=== PATIENT | male | born 2000 | race Caucasian/White ===

== ENCOUNTER 2023-03-30 18:32 | Emergency (ER) | payer BC, SELFPAY ==
--- NOTE | 2023-03-30 18:48 | ED.URI ---
HPI - URI/Sore Throat General Chief Complaint: Upper Respiratory Infection Stated Complaint: Sore Throat Time Seen by Provider: 03/30/23 18:48 Source: patient Mode of arrival: ambulatory Limitations: no limitations History of Present Illness HPI Narrative: Walter is a 23-year-old male patient presenting to the clinic today with complaints of sore throat x4 days. He denies any fever or chills. Did take at home COVID test and it was negative. Thinks is the sore throat may be related to allergy MD elicited complaint: cough, sore throat and nasal congestion Related Data Home Medications Medication Instructions Recorded Confirmed dextroamphetamine-amphetamine ER 30 mg PO DAILY 10/11/20 03/30/23 30 mg 24hr capsule,extend release (Adderall XR) diphenhydramine HCl 25 mg tablet 25 mg PO QHS 10/11/20 03/30/23 (Allergy (diphenhydramine)) Allergies Allergy/AdvReac Type Severity Reaction Status Date / Time No Known Allergies Allergy Verified 03/30/23 18:52 Review of Systems Review of Systems: Pertinent positives per HPI. Patient denies any fever, chills, rash, headache, visual changes, dizziness, cough, shortness of breath, chest pain, palpitations, nausea, vomiting, diarrhea, constipation, abdominal pain, or any urinary issues. [facility] Past Medical History Medical History BMI 31.0-31.9,adult Surgical History Surgical History S/P LASIK surgery Family History Family History Father Hypertension Mother Hypertension Depression Rheumatoid arthritis Sibling Depression Autism disorder Social History Social History Smoking status: Never smoker Second hand tobacco smoke exposure: No Alcohol intake: current Substance use: former Substance use type: does not use Living arrangements: dorm student housing Occupation/Education: student Additional occupation/education comments: [employer] Gender identity (if verbalized by the patient): Male Comments At the time of my signature, I reviewed and agree with the nursing past medical, surgical, social, and family history. There is no relevant family history pertinent to the patient complaint. Exam Narrative: General: Well-developed, well nourished, in no apparent distress Head: Normocephalic, atraumatic Eyes: Pupils equally round and reactive to light bilaterally, EOM intact, sclera and conjunctive clear, no discharge, lids normal Ears: TMs intact and clear, ear canals clear, no drainage, grossly hearing normal. Nose: Nares patent, clear discharge, no inflammation, no sinus tenderness. Mouth: Oral pharynx red without lesions or masses, good dentition, MMM. Postnasal drip Neck: Supple, trachea midline, no enlargement of anterior or posterior cervical nodes, no thyroid masses or goiter palpable. Cardio: Regular rate and rhythm, s1 and s2 normal, no murmur appreciated. Resp: Clear to auscultation bilaterally, no rhonchi, rales, wheezing or rubs Course Course Emergency Course: Portions of this record may have been created with voice recognition software. Level of Care: Express Care Visit Vital Signs Vital signs: Vital signs reviewed MDM - URI/Sore Throat MDM Narrative Medical decision making narrative: At the time of visit patient is resting comfortably on exam table. Strep screen was obtained and was negative in the clinic today. I suspect patient has viral pharyngitis. Supportive measures were discussed with the patient he voiced understanding discharge instructions agrees to treatment plan. Differential Diagnosis Differential diagnosis: Likely upper respiratory infection, otitis media, sinusitis, viral infection, bronchitis, influenza, pharyngitis and other (COVID) Discharge Plan
[2023-03-30 18:53] VITALS: BP 141/91; PULSE 88; RESP 16; TEMP 36.6; O2SAT 100
== END 2023-03-30 19:07 | disposition home or self-care (01) ==
PROVIDERS: Emergency Provider Nurse Practitioner Family
DX: J02.9 Acute pharyngitis, unspecified (principal)
CPT/HCPCS: 87081; 87880; 99213; G0463

== ENCOUNTER 2023-10-03 10:47 | Emergency (ER) | payer BC, SELFPAY ==
--- NOTE | ~2023-10-03 | CT_ITS ---
EXAMINATION: CT abdomen pelvis wo con DATE: 10/03/2023 14:11 INDICATION: Left lower quadrant abdominal pain. Hematuria. TECHNIQUE: Computed tomography (CT) of the abdomen and pelvis was performed without intravenous contr ast. Automated exposure control and iterative reconstruction technique were employed. The dose-length product was 1036.09 mGy-cm. COMPARISON: None. FINDINGS: The visualized portions of the lung bases are clear without pneumonia or pleural effusion. The heart size is normal. No pericardial effusion. The liver, gallbladder, spleen, pancreas, adrenal glands are normal. There are three 1-2 mm stones in right kidney. There is a 2 mm stone in left kidne y. There is mild left hydronephrosis and hydroureter. There is a 3 mm stone at left ureterovesicular junction. There are no dilated loops of bowel. The appendix is fluid-filled and measures 9 mm in diam eter. There are no pathologically enlarged lymph nodes. There is no free intraperitoneal fluid. There is mild lumbar spondylosis. IMPRESSION: 1. 3 mm stone at left ureterovesicular junction with mild left hydronephrosis and hydroureter. 2. Small bilateral nonobstructing kidney stones. 3. Fluid-filled appendix with diameter of 9 mm, which may be normal. Correlate with physical exam to exclude acute appendicitis. Reviewed, dictated and finalized at location A. IMPRESSION: 1. 3 mm stone at left ureterovesicular junction with mild left hydronephrosis a nd hydroureter. 2. Small bilateral nonobstructing kidney stones. 3. Fluid-filled appendix with diameter of 9 mm, which may be normal. Correlate with physical exam to exclude acute appendicitis.
[2023-10-03 11:06] VITALS: BP 177/110; PULSE 94; RESP 16; TEMP 36.7; O2SAT 100
[2023-10-03 13:10] LABS: Basophils Absolute Auto 0.1 K/mm3 (0.0-0.1); Basophils Percent Auto 0.5 % (0.2-1.2); Eosinophils Percent Auto 0.3 % (0-4.4); Hematocrit 48.8 % (42.0-52.0); Hemoglobin 15.8 g/dL (14.0-18.0); Immature Granulocyte Absolute 0.11 K/mm3 (0.00-0.031); Immature Granulocyte Percent A 0.9 % (0-0.5); Lymphocytes Absolute Auto 0.66 K/mm3 (0.9-3.2); Lymphocytes Percent Auto 5.3 % (18.3-44.2); Mean Corpuscular HGB Conc 32.4 g/dl (32-36); Mean Corpuscular Hemoglobin 30.7 pg (26-34); Mean Corpuscular Volume 94.9 fl (80-100); Mean Platelet Volume 9.9 fl (7.4-10.4); Monocytes Absolute Auto 0.7 K/mm3 (0.1-0.6); Monocytes Percent Auto 5.5 % (2.6-8.5); Neutrophils Absolute Auto 10.9 K/mm3 (1.3-6.7); Neutrophils Percent Auto 87.5 % (45.5-73.1); Platelet Count Result 273 k/mm3 (150-375); Red Blood Count 5.14 M/mm3 (4.6-6.20); Red Cell Distribution Width 13.7 % (11.5-14.5); White Blood Count 12.5 K/mm3 (4.5-10.0)
--- NOTE | 2023-10-03 13:19 | ED.ABDPAIN ---
HPI - Abdominal Pain General Chief Complaint: Abdominal Pain Stated Complaint: LLQ pain, chills Time Seen by Provider: 10/03/23 12:44 History of Present Illness HPI narrative: 23-year-old male present to the emergency department for evaluation of acute onset of left flank and left lower quadrant pain. Patient was at work when the symptoms started. Patient denies any prior abdominal surgical history denies any prior history of kidney stones. At time of evaluation patient states that pain has resolved. Related Data Home Medications Medication Instructions Recorded Confirmed dextroamphetamine-amphetamine ER 30 mg PO DAILY 10/11/20 03/30/23 30 mg 24hr capsule,extend release (Adderall XR) diphenhydramine HCl 25 mg tablet 25 mg PO QHS 10/11/20 03/30/23 (Allergy (diphenhydramine)) Allergies Allergy/AdvReac Type Severity Reaction Status Date / Time No Known Allergies Allergy Verified 10/03/23 13:18 Review of Systems Review of Systems: All systems reviewed & are unremarkable except as noted in HPI and below PMFSH Past Medical History Medical History BMI 31.0-31.9,adult Surgical History Surgical History S/P LASIK surgery Family History Family History Father Hypertension Mother Hypertension Depression Rheumatoid arthritis Sibling Depression Autism disorder Social History Social History Smoking status: Never smoker Second hand tobacco smoke exposure: No Alcohol intake: current Substance use: former Substance use type: does not use Living arrangements: dorm student housing Occupation/Education: student Additional occupation/education comments: [employer] Gender identity (if verbalized by the patient): Male Exam Narrative: APPEARANCE: Well appearing, no pain, no distress, well-nourished. HEAD: normocephalic, atraumatic. EYES: PERRLA/EOMI, conjunctivae clear. NOSE: Normal no drainage EARS:TMS clear with good light reflex. THROAT: Pharynx clear, no exudate. NECK: Supple. No adenopathy, no masses. RESPIRATORY: Airway patent, respirations nonlabored. Clear to auscultation bilaterally, no rales, rhonchi, wheezing. CARDIOVASCULAR: Regular rate and rhythm without murmurs rubs or gallops. ABDOMINAL: Soft, nontender, nondistended, normal bowel sounds MUSCULOSKELETAL: Moves all extremities. Strength/ROM intact, No edema, No calf tenderness. NEURO: Alert. Cranial nerves II through XII intact. Good gait. Good coordination SKIN: Warm, dry. Normal Color Course Course Emergency Course: Patient was pain-free at time of discharge and he was encouraged to have close follow-up with Urology. Vital Signs Vital signs: Vital Signs Temperature 98.1 F 10/03/23 11:06 Pulse Rate 94 10/03/23 11:06 Respiratory Rate 16 10/03/23 11:06 Blood Pressure 177/110 H 10/03/23 11:06 Pulse Oximetry 100 10/03/23 11:06 Temperature 98.1 F 10/03/23 11:06 Pulse Rate 94 10/03/23 11:06 Respiratory Rate 16 10/03/23 11:06 Blood Pressure 177/110 H 10/03/23 11:06 Pulse Oximetry 100 10/03/23 11:06 MDM - Abdominal Pain MDM Narrative Medical decision making narrative: 23-year-old male presenting emergency department for evaluation left lower quadrant pain. Patient is afebrile but does have a leukocytosis of 12.5 and hemoglobin of 15.8. UA did show evidence hematuria and patient's CMP had no acute abnormalities. CT scan did show a 3 mm stone at left ureterovesicular junction with mild left hydronephrosis and hydroureter. Patient denies any pain or complaint at this time. Patient was provided a Flomax, Zofran and [place] for pain control for home. Patient was encouraged to strain his urine have close follow-up with Urology. Patient w
[2023-10-03 13:24] LABS: Lactic Acid Reflex 0.8 mmol/L (0.7-2.0)
[2023-10-03 13:31] LABS: Alanine Aminotransferase 26 U/L (6-50); Albumin Level 4.6 g/dL (3.5-5.1); Alkaline Phosphatase 71 U/L (38-126); Anion Gap 8 mmol/L (4-12); Aspartate Amino Transferase 33 U/L (17-59); Bilirubin,Total 0.7 mg/dL (0.2-1.3); Blood Urea Nitrogen 16 mg/dL (9-20); Calcium 9.6 mg/dL (8.4-10.2); Carbon Dioxide 27 mmol/L (22-30); Chloride 102 mmol/L (98-107); Estimated CRCL calculation 143 ml/min; Estimated Glomerular Filt Rate > 60; Glucose 104 mg/dL (65-110); Potassium 3.6 mmol/L (3.4-5.0); Sodium 137 mmol/L (137-145)
[2023-10-03 13:32] LABS: Prothrombin Time 13.4 Seconds (11.1-14.7)
[2023-10-03 13:33] LABS: Partial Thromboplastin Time 30.9 Seconds (22.3-36.8)
[2023-10-03 13:35] LABS: Appearance Urine Clear (Clear); Bacteria Urine None Seen /hpf; Bilirubin Urine Negative (Negative); Blood Urine Non-Hemolyzed Trace (Negative); Color Urine Yellow (Yellow); Glucose Urine UA Negative (Negative); Ketones Urine Negative (Negative); Leukocyte Esterase Ur Negative LEU/UL (Negative); Nitrate Urine Negative (Negative); Non Pathogenic Casts 0-2; Protein Urine Negative (Negative); Specific Grav Ur 1.015 (1.001-1.035); Squamous Epithelial Cell Urine None Seen /hpf (Few); Urobilinogen Urine 0.2 mg/dL (<2.0); WBC Urine 0-5 /hpf (0-3); pH Urine 7.5 (5.0-9.0)
[2023-10-03 13:39] LABS: Add Urine Microscopic? YES
== END 2023-10-03 15:05 | disposition home or self-care (01) ==
PROVIDERS: Emergency Provider Emergency Medicine
DX: N13.2 Hydronephrosis with renal and ureteral calculous obstruction (principal)
CPT/HCPCS: 36415; 74176; 80053; 81001; 83605; 85025; 85610; 85730; 99284